=== PATIENT | male | born 1970 | race African-American/Black ===

== ENCOUNTER 2016-07-21 21:35 | Emergency (ER) | payer MEDICAID ==
[~2016-07-21] VITALS: Ht 177.8 cm; Wt 65.0 kg
[2016-07-21] MEDS ORDERED: COGE1INJ PO (21:44)
[2016-07-21 21:45] VITALS: BP 132/83; PULSE 68; RESP 18; TEMP 98.1; O2SAT 99
[2016-07-21] MEDS ORDERED: HALD50IN PO (21:45)
[2016-07-21] MEDS ORDERED: PROZ20CA11 PO (21:45)
[2016-07-21] MEDS ORDERED: SODIUM CHLORIDE 0.9% FLUSH 10 ML FLUSH IV FLUSH PRN (22:30)
[2016-07-21 22:36] VITALS: O2SAT 99
[2016-07-21 22:46] LABS: AUTOMATED NEUTROPHIL # 3.5 TH/MM3 (1.8-7.7); BASOPHIL # 0.1 TH/MM3 (0-0.2); BASOPHIL % 0.7 % (0.0-2.0); BLOOD, URINE NEG (NEG); COMMENT (UR) CULT NOT INDICATED; CULTURE IF INDICATED CULT NOT INDICATED; EOSINOPHIL # 0.3 TH/MM3 (0-0.4); EOSINOPHIL % 3.8 % (0.0-4.0); GLUCOSE,URINE NEG (NEG); HEMATOCRIT 44.4 % (39.0-51.0); HEMO FLAGS DIFF FINAL; KETONE, URINE NEG (NEG); LYMPHOCYTE # 3.1 TH/MM3 (1.0-4.8); MEAN CELL VOLUME 92.1 FL (80.0-100.0); MEAN CORPUSCULAR HEMOGLOBIN 31.6 PG (27.0-34.0); MEAN CORPUSCULAR HGB CONC 34.2 % (32.0-36.0); MONO % 4.2 % (0.0-8.0); NEUT % 48.3 % (16.0-70.0); NITRITE,URINE NEG (NEG); PH, URINE 5.5 (5.0-8.5); PLATELET COUNT 214 TH/MM3 (150-450); RED BLOOD COUNT 4.81 MIL/MM3 (4.50-5.90); RED CELL DISTRIBUTION WIDTH 13.9 % (11.6-17.2); URINE COLOR YELLOW (YELLW/STRAW); WHITE BLOOD COUNT 7.2 TH/MM3 (4.0-11.0)
[2016-07-21 22:54] LABS: AMPHETAMINE, URINE POS (NEG); BARBITURATES, URINE NEG (NEG); COCAINE, URINE POS (NEG)
[2016-07-21 23:00] LABS: ANION GAP 5 MEQ/L (5-15); AST (GOT) 80 U/L (15-37); BICARBONATE 31.1 MEQ/L (21.0-32.0); BLOOD UREA NITROGEN 9 MG/DL (7-18); CHLORIDE 102 MEQ/L (98-107); GLOMERULAR FILTRATION RATE 99 ML/MIN (>89); MAGNESIUM 2.2 MG/DL (1.5-2.5); POTASSIUM 3.9 MEQ/L (3.5-5.1); SODIUM (NA) 138 MEQ/L (136-145)
--- NOTE | 2016-07-21 23:02 | RADRPT ---
EXAM DATE/TIME: 07/21/2016 22:53 [facility] COMPARISON: No previous studies available for comparison. INDICATIONS : Chest discomfort; upper abdomen pain. MEDICAL HISTORY : None. SURGICAL HISTORY : None. ENCOUNTER: Initial ACUITY: 1 day PAIN SCORE: 6/10 LOCATION: Lower chest. FINDINGS: A single view of the chest demonstrates the lungs to be symmetrically aerated without evidence of mas s, infiltrate or effusion. The cardiomediastinal contours are unremarkable. Osseous structures are intact. CONCLUSION: No acute disease. Phu Rubio MD on July 21, 2016 at 23:00 Board Certified Radiologist. This report was verified electronically.
[2016-07-21 23:04] LABS: APTT (PATIENT) 30.3 SEC (24.3-30.1); INTERNATIONAL NORMALIZED RATIO 1.1 RATIO
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
[2016-07-21 23:05] LABS: ALKALINE PHOSPHATASE 94 U/L (45-117); ALT (GPT) 90 U/L (12-78); TOTAL BILIRUBIN ADULT 0.6 MG/DL (0.2-1.0)
[2016-07-22] MEDS ORDERED: IOHEXOL 350 MG/ML 10 ML VIAL (for RAD DIAG) IV ONE (01:03)
--- NOTE | 2016-07-22 01:12 | RADRPT ---
EXAM DATE/TIME: 07/22/2016 00:58 [facility] COMPARISON: No previous studies available for comparison. INDICATIONS : Left lower quadrant pain. Hematemesis. IV CONTRAST: 100 cc Omnipaque 350 (iohexol) IV ORAL CONTRAST: No oral contrast ingested. RADIATION DOSE: 6.64 CTDIvol (mGy) MEDICAL HISTORY : Ulcers. SURGICAL HISTORY : None. ENCOUNTER: Initial ACUITY: 1 day PAIN SCALE: 5/10 LOCATION: Left lower quadrant TECHNIQUE: Volumetric scanning of the abdomen and pelvis was performed. Using automated exposure control and ad justment of the mA and/or kV according to patient size, radiation dose was kept as low as reasonably achievable to obtain optimal diagnostic quality images. FINDINGS: LOWER LUNGS: The visualized lower lungs are clear. LIVER: Homogeneous density without lesion. There is no dilation of the biliary tree. No calcified gallston es. SPLEEN: Normal size without lesion. PANCREAS: Within normal limits. KIDNEYS: Normal in size and shape. There is no mass, stone or hydronephrosis. ADRENAL GLANDS: Within normal limits. VASCULAR: There is no aortic aneurysm. BOWEL/MESENTERY: The stomach, small bowel, and colon demonstrate no acute abnormality. There is no free intraperitone al air or fluid. Copious amount of stool throughout the large bowel. ABDOMINAL WALL: Within normal limits. RETROPERITONEUM: There is no lymphadenopathy. BLADDER: No wall thickening or mass. REPRODUCTIVE: Within normal limits. INGUINAL: There is no lymphadenopathy or hernia. MUSCULOSKELETAL: That containing hernia along the right flank just posterior to the right kidney. CONCLUSION: 1. No acute inflammatory process. 2. Copious amount of stool. 3. Fat containing hernia the posterior flank, just posterior to the right kidney. Phu Rubio MD on July 22, 2016 at 1:07 Board Certified Radiologist. This report was verified electronically.
[2016-07-22] MEDS ORDERED: FAMOTIDINE 20 MG TAB PO ONE (02:15)
--- NOTE | 2016-07-22 15:29 | EKG ---
Date Performed: 07/21/2016 Time Performed: 22:38:09 PTAGE: 46 years EKG: SINUS BRADYCARDIA BORDERLINE ECG NO PREVIOUS TRACING DOCTOR: Rajeev Jacobson Interpretating Date/Time 07/22/2016 15:26:29
== END 2016-07-22 02:36 | disposition home or self-care (01) ==
LOC: NEPC 21:35
DX: R55 Syncope and collapse (principal); J40 Bronchitis, not specified as acute or chronic; F19.10 Other psychoactive substance abuse, uncomplicated; R10.9 Unspecified abdominal pain; F17.210 Nicotine dependence, cigarettes, uncomplicated; R00.1 Bradycardia, unspecified
CPT/HCPCS: 71010; 74177; 80053; 80307; 81001; 83690; 83735; 84484; 85025; 85610; 85730; 93005; 99284; Q9967

== ENCOUNTER 2016-11-14 13:55 | Emergency (ER) | payer MEDICAID ==
[~2016-11-14 13:55] MED LIST: COGE1INJ PO; HALD50IN PO; PROZ20CA11 PO
[2016-11-14 13:59] VITALS: BP 146/74; PULSE 84; RESP 15; TEMP 98.4; O2SAT 98
--- NOTE | 2016-11-14 14:04 | PD ---
Physical Exam Date Seen by Provider: Nov 14, 2016 Time Seen by Provider: 13:59 Narrative Pt presents for evaluation of a skin lesion to right elbow and a respiratory infection, he reports cough, nasal congestion can't sleep. Denies any fevers. This has been ongoing for 5 days. VSS, awaiting bed placement. MDM Supervised Visit with GINNA: Ramona Quinones Nov 14, 2016 14:04
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
[2016-11-14] MEDS ORDERED: RESP: ALBUTEROL 2.5 MG/3 ML NEB (SCH) INH ONE (14:30)
[2016-11-14] MEDS ORDERED: PRED-503 PO (14:45)
[2016-11-14] MEDS ORDERED: ALBUAER3 INH (14:45)
[2016-11-14] MEDS ORDERED: CLIN1CAP5 PO (14:45)
--- NOTE | 2016-11-14 14:57 | RADRPT ---
EXAM DATE/TIME: 11/14/2016 14:39 [facility] COMPARISON: No previous studies available for comparison. INDICATIONS : Short of breath for four days. MEDICAL HISTORY : Heart murmor, Ulcers SURGICAL HISTORY : None. ENCOUNTER: Initial ACUITY: 4 - 6 days PAIN SCORE: 0/10 LOCATION: Bilateral chest FINDINGS: PA and lateral views of the chest demonstrate the lungs to be symmetrically aerated without evidence of mass, infiltrate or effusion. The cardiomediastinal contours are unremarkable. Osseous structure s are intact. CONCLUSION: No acute disease. Madhav Collazo MD FACR on November 14, 2016 at 14:51 Board Certified Radiologist. This report was verified electronically.
== END 2016-11-14 16:08 | disposition home or self-care (01) ==
LOC: NEPK 13:55
DX: J40 Bronchitis, not specified as acute or chronic (principal); S50.311A Abrasion of right elbow, initial encounter; R09.81 Nasal congestion; F17.200 Nicotine dependence, unspecified, uncomplicated; Z87.19 Personal history of other diseases of the digestive system; X58.XXXA Exposure to other specified factors, initial encounter
CPT/HCPCS: 71020; 87804; 94664; 99284; J7613

== ENCOUNTER 2017-04-02 13:22 | Emergency (ER) | payer MEDICAID ==
[~2017-04-02] VITALS: Ht 177.8 cm; Wt 65.0 kg
[~2017-04-02 13:22] MED LIST changes: +ALBUAER3 INH; +CLIN150C14 PO; +PRED-503 PO
[2017-04-02 13:29] VITALS: BP 122/74; PULSE 85; RESP 16; TEMP 99; O2SAT 97
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
[2017-04-02] MEDS ORDERED: CEPH-460 PO (15:06)
[2017-04-02] MEDS ORDERED: TETANUS/DIPHTHERIA TOXOID ADULT 0.5 ML VIAL IM ONE (15:30)
== END 2017-04-02 15:53 | disposition home or self-care (01) ==
LOC: NEPK 13:22
DX: S61.012A Laceration without foreign body of left thumb without damage to nail, initial encounter (principal); F17.200 Nicotine dependence, unspecified, uncomplicated; Z87.11 Personal history of peptic ulcer disease; Z88.2 Allergy status to sulfonamides; Z79.899 Other long term (current) drug therapy; Z88.0 Allergy status to penicillin; W26.0XXA Contact with knife, initial encounter
CPT/HCPCS: 12002; 90471; 90714

== ENCOUNTER 2017-06-10 23:36 | Emergency (ER) | payer SELFPAY ==
[~2017-06-10] VITALS: Ht 177.8 cm; Wt 68.0 kg
[~2017-06-10 23:36] MED LIST changes: +CEPH-460 PO
[2017-06-11 00:07] VITALS: BP 129/74; PULSE 72; RESP 16; TEMP 98.9; O2SAT 100
== END 2017-06-11 03:27 | disposition left against medical advice (07) ==
LOC: NED 23:36
DX: Z53.21 Procedure and treatment not carried out due to patient leaving prior to being seen by health care provider (principal)
CPT/HCPCS: 99281